=== PATIENT | male | born 1975 | race Caucasian/White ===

== ENCOUNTER 2018-02-01 13:25 | Emergency (ER) | payer MEDICARE, OTHER ==
[2018-02-01] MEDS ORDERED: BENADRYL 50 MG/ML IV ONE (13:59)
[2018-02-01] MEDS ORDERED: solu-MEDROL 125 MG IV ONE (13:59)
[2018-02-01] MEDS ORDERED: Pepcid 20 MG VIAL IV ONE ×2 (13:59→14:02)
[2018-02-01] MEDS ORDERED: Sodium Chloride 0.9% 1000 ML 1,000 ML IV SCH (14:00)
[2018-02-01] MEDS ORDERED: solu-MEDROL 125 MG ONE (14:02)
[2018-02-01] MEDS ORDERED: BENADRYL 50 MG/ML ONE (14:02)
[2018-02-01] MEDS ORDERED: Sodium Chloride 0.9% 1000 ML 1,000 ML ONE (14:02)
--- NOTE | 2018-02-01 14:11 | ERPHSYRPT ---
- History of Present Illness Time Seen by Provider: 02/01/18 13:45 Source: patient Exam Limitations: clinical condition Patient Subjective Stated Complaint: Pt states "On thursday I notced a rash on my left leg and it was itchy. Now it is on my left shoulder, and my head." Triage Nursing Assessment: Pt alert and oriented X 3, skin pwd. Pt ambulates with an upright steady gait, able to speak in clear full sentences. pt has small red non raised rash on left calf, large red rash left thigh, left shoulder slightly red Physician History: PATIENT WITH A HISTORY OF HYPERTENSION AND DEPRESSION COMPLAINS OF ONSET OF RASH INITIALLY OVER LOWER EXTREMITIES NOW SPREAD TO TRUNK AND UPPER EXTREMITIES. HAS ASSOCIATED ITCHING, UNKNOWN SOURCE. DENIES DIFFICULTY BREATHING OR SWALLOWING. Timing/Duration: day(s) Quality: itchy Severity: moderate Location: generalized Possible Causes: no cause identified Associated Symptoms: rash Allergies/Adverse Reactions: bee venom protein (honey bee) Allergy (Severe, Verified 02/01/18 13:39) Swelling ibuprofen Allergy (Severe, Verified 02/01/18 13:39) Swelling Home Medications: Aspirin [Aspirin EC] 81 mg PO DAILY 02/01/18 [History] Duloxetine HCl 30 mg [Cymbalta 30 MG Capsule] 30 mg PO DAILY 02/01/18 [ History] Lisinopril [Qbrelis] 1 mg PO DAILY 02/01/18 [History] Metoprolol Tartrate 25 mg PO DAILY 02/01/18 [History] Prazosin HCl [Minipress] 1 mg PO DAILY 02/01/18 [History] Quetiapine Fumarate [Seroquel] 25 mg PO DAILY 02/01/18 [History] Simvastatin [Zocor] 5 mg PO DAILY 02/01/18 [History] Hx Tetanus, Diphtheria Vaccination/Date Given: Yes Hx Influenza Vaccination/Date Given: Yes Hx Pneumococcal Vaccination/Date Given: Yes Immunizations Up to Date: Yes - Review of Systems Constitutional: No Fever, No Chills Eyes: No Symptoms Ears, Nose, & Throat: No Symptoms Respiratory: No Cough, No Dyspnea Cardiac: No Chest Pain, No Edema, No Syncope Abdominal/Gastrointestinal: No Abdominal Pain, No Nausea, No Vomiting, No Diarrhea Genitourinary Symptoms: No Dysuria Musculoskeletal: No Back Pain, No Neck Pain Skin: Pruritis, Skin Lesions, No Rash Neurological: No Dizziness, No Focal Weakness, No Sensory Changes Psychological: No Symptoms Endocrine: No Symptoms All Other Systems: Reviewed and Negative - Past Medical History Pertinent Past Medical History: Yes Neurological History: Migraines, TIA ENT History: Cataracts Cardiac History: High Cholesterol, Hypertension Respiratory History: No Pertinent History Endocrine Medical History: No Pertinent History Musculoskeletal History: No Pertinent History GI Medical History: GERD History: No Pertinent History Psycho-Social History: Anxiety, Depression Male Reproductive Disorders: No Pertinent History - Past Surgical History Past Surgical History: Yes Other Surgical History: rt shoulder - Social History Smoking Status: Former smoker Exposure to second hand smoke: Yes Drug Use: none Patient Lives Alone: No - Nursing Vital Signs Nursing Vital Signs: Initial Vital Signs Temperature 98.8 F 02/01/18 13:30 Pulse Rate 98 H 02/01/18 13:30 Respiratory Rate 18 02/01/18 13:30 Blood Pressure 128/89 02/01/18 13:30 O2 Sat by Pulse Oximetry 96 02/01/18 13:30 Pain Scale Pain Intensity 0 - Physical Exam General Appearance: no apparent distress, alert Eye Exam: PERRL/EOMI, eyes nml inspection Ears, Nose, Throat Exam: normal ENT inspection, pharynx normal, moist mucous membranes Neck Exam: normal inspection, non-tender, supple, full range of motion Respiratory Exam: normal breath sounds, lungs clear, No respiratory distress Cardiovascular Exam: regular rate/rhythm, normal heart sounds Gastrointestinal/Abdomen Exam: soft, normal bowel sounds, mass, No tenderness Back Exam: normal inspection, normal range of motion, No CVA tenderness, No vertebral tenderness Extremity Exam: normal inspection, normal range of motion Neurologic Exam: alert, oriented x 3, cooperative, normal mood/affect, sensation nml, No motor deficits Skin Exam: normal color, warm, dry, other (GENERALIZED VESICULAR LESIONS OVER EXTREMITIES. LOWER TRUNK. ) SpO2 Interpretation: normal SpO2: 96 Oxygen Delivery: Room Air Ordered Tests: Medication Summary Generic Name Dose Route Start Last Admin Trade Name Freq PRN Reason Stop Dose Admin Sodium Chloride 1,000 mls @ 100 mls/hr 02/01/18 14:00 02/01/18 14:07 Sodium Chloride 0.9% 1000 Ml IV 03/03/18 13:59 100 mls/hr .Q10H FINA Administration Discontinued Medications Generic Name Dose Route Start Last Admin Trade Name Freq PRN Reason Stop Dose Admin Diphenhydramine HCl 50 mg 02/01/18 13:59 02/01/18 14:08 Benadryl 50 Mg/Ml IV 02/01/18 14:00 50 mg STAT ONE Administration Diphenhydramine HCl Confirm 02/01/18 14:02 Benadryl 50 Mg/Ml Administered 02/01/18 14:03 Dose 50 mg .ROUTE .STK-MED ONE Famotidine 20 mg 02/01/18 13:59 02/01/18 14:08 Pepcid 20 Mg Vial IV 02/01/18 14:00 20 mg STAT ONE Administration Famotidine Confirm 02/01/18 14:02 Pepcid 20 Mg Vial Administered 02/01/18 14:03 Dose 20 mg IV .STK-MED ONE Methylprednisolone Sodium Succinate 125 mg 02/01/18 13:59 02/01/18 14:08 Solu-Medrol 125 Mg IV 02/01/18 14:00 125 mg STAT ONE Administration Methylprednisolone Sodium Succinate Confirm 02/01/18 14:02 Solu-Medrol 125 Mg Administered 02/01/18 14:03 Dose 125 mg .ROUTE .STK-MED ONE - Progress Progress: improved Progress Note: 02/01/18 14:05 IV NORMAL SALINE 100ML/HR, BENADRYL 50MG, SOLUMEDROL 125MG, PEPCID 20MG IV Counseled pt/family regarding: diagnosis, need for follow-up - Departure Time of Disposition: 14:50 Departure Disposition: Home Clinical Impression: CONTACT DERMATITIS Condition: Stable Critical Care Time: No Referrals: DOCTOR,NO FAMILY [Primary Care Provider] - Additional Instructions: TAKE OVER THE COUNTER BENADRYL 50MG EVERY 4 HOURS FOR ITCHING NEEDED. PREDNISONE 20MG, 2 TABLETS DAILY FOR 5 DAYS. CONSULT YOUR PRIMARY CARE PROVIDER FOR FOLLOWUP. Prescriptions: Prednisone 20 mg [Deltasone 20 mg] 2 tab PO DAILY #10 tablet Triamcinolone Acetonide 80 gm TP BID #80 oint...g.
[2018-02-01 15:32] VITALS: BP 110/78; PULSE 82; O2SAT 98
== END 2018-02-01 15:32 | disposition home or self-care (01) ==
LOC: ED 13:25
DX: L25.9 Unspecified contact dermatitis, unspecified cause (principal); I10 Essential (primary) hypertension; E78.00 Pure hypercholesterolemia, unspecified; K21.9 Gastro-esophageal reflux disease without esophagitis; F41.8 Other specified anxiety disorders; Z79.899 Other long term (current) drug therapy
CPT/HCPCS: 96360; 96374; 96375; 99284; J1200; J2930